=== PATIENT | female | born 1975 | race Caucasian/White ===

== ENCOUNTER 2024-05-19 14:03 | Emergency (ER) | payer OTHER ==
[2024-05-19 14:18] VITALS: BP 117/73; PULSE 70; RESP 16; TEMP 97.6; BMI 25.7
== END 2024-05-19 17:02 | disposition home or self-care (01) ==
LOC: JER 14:03
DX: S00.83XA Contusion of other part of head, initial encounter (principal); W22.09XA Striking against other stationary object, initial encounter
CPT/HCPCS: 70450-TC; 99284-25